=== PATIENT | female | born 1950 | race Caucasian/White ===

== ENCOUNTER → 2018-01-12 | Outpatient (CLI) | payer MEDICARE, OTHER ==
[~2018-01-12] MED LIST: AUG875 PO; CEF300 PO; IBU600 PO; LOR5 PO; METH4TAB57 PO; PER PO; PRO25 PO; VICODAN
--- NOTE | 2018-01-12 14:18 | RADIOLOGY IMAGING REPORT ---
FACILITY: [facility] PATIENT NAME: Cary Dunham : 1950 MR: [id number] V: [id number] EXAM DATE: ORDERING PHYSICIAN: MARISSA PATEL TECHNOLOGIST: Location: [facility] Patient: Cary Dunham : 1950 Visit/Account:[id number] Date of Sevice: 01/12/2018 DEXA Scan Clinical history: Post menopausal disorders. Comparison: DEXA scan from 11/11/2003. LUMBAR SPINE: The bone mineral density (BMD) measured from L1-L4 correlates with a Z-score of 1.6 and a T-score of -0.4 which is Normal as defined by the World Health Organization. The corresponding risk of fracture in the lumbar spine is Not increased compared with a young adult reference population. This value h as decrease by 18 % since the prior study. More than 5% change is considered significant. HIP: Bone mineral density (BMD) measured in the LEFT total hip region correlates with a Z-score 0.8 and a T-score of -0.7 which is normal as defined by the World Health Organization. The corresponding risk of fracture in the hip is 1-2 t imes increased compared to a young adult reference population. This value has decrease by 13.8 % sinc e the prior study. More than 5% change is considered significant. T score left femoral neck -1.2 Bone mineral density (BMD) measured in the Femoral Neck region measures 0.868 g/cm?. IMPRESSION: 1. Lumbar spine: Normal. There has been 18% decrease in the bone mineral density since the previous exam. 2. Left Total Hip: Normal. There has been 13.8% decrease in the bone mineral density since the prev ious exam. 3. Femoral Neck: Bone Mineral Density is 0.868 g/cm? The next DEXA scan of this patient should include the following sites: L1-L4 and the left hip. FRAX? WHO Fracture Risk Assessment Tool link: <http://www.shef.ac.uk/FRAX/tool.jsp?locationValue=9> PLEASE NOTE: 1) The World Health Organization defines low BMD as follows: T-score Normal > -1 Osteopenia < -1 and > -2.5 Osteoporosis < -2.5 without fractures Established osteoporosis < -2.5 with fractures 2) In general, you may wish to consider: Diagnosis Treatment Follow-up DEXA Normal BMD Prevention 2-3 years Osteopenia Prevention/therapy 1-2 years Osteoporosis Therapy Yearly 3) Fracture risk estimated from the T-score is more accurate for vertebral fractures (often spontane ous) than for hip fractures. Report Dictated By: Inge Mcwilliams MD at 01/12/2018 2:12 PM Report E-Signed By: Inge Mcwilliams MD at 01/12/2018 2:13 PM WSN:[email or web address]
--- NOTE | 2018-01-13 09:06 | RADIOLOGY IMAGING REPORT ---
FACILITY: [facility] PATIENT NAME: KARON NORMAN : [id number] MR: [id number] V: [id number] EXAM DATE: ORDERING PHYSICIAN: MARISSA PATEL TECHNOLOGIST: Marian Quinteros PROCEDURE:BILATERAL DIGITAL SCREENING MAMMOGRAM WITH CAD ASSISTED INTERPRETATION & 3D TOMOSYNTHESIS COMPARISON:Prior mammograms 12/21/16, 11/22/14, 09/01/15, 05/15/13, 06/07/11 INDICATIONS:SCREENING FINDINGS: Moderately heterogeneous fibroglandular tissue is seen throughout the breasts. The parenchymal pattern has remained stable allowing for difference in mammographic technique & patient positioning. There is no evidence of malignant appearing mass, malignant appearing calcifications or other secondary sign of malignancy in either breast. DIAGNOSTIC CATEGORY 1--NEGATIVE. RECOMMENDATIONS: ROUTINE MAMMOGRAM AND CLINICAL EVALUATION. IMPRESSION: BIRADS 1: Negative No significant abnormality is seen Dictated by: Inge Mcwilliams M.D. on 01/12/2018 at 17:01 Transcribed by: FIX on 01/13/2018 at 9:03 Approved by: Inge Mcwilliams M.D. on 01/13/2018 at 9:05 [facility]
== END ==
LOC: MAMO 00:35
PROVIDERS: ATTEND Physician Assistant
DX: Z13.820 Encounter for screening for osteoporosis (principal); Z12.31 Encounter for screening mammogram for malignant neoplasm of breast; N95.8 Other specified menopausal and perimenopausal disorders
CPT/HCPCS: 77063; 77067; 77080

== ENCOUNTER 2018-09-17 15:57 | Emergency (ER) | payer MEDICARE, OTHER ==
[2018-09-17] MEDS ORDERED: KETOROLAC 15 MG/ML VIAL IVP ONE ×2 (16:10→20:15)
--- NOTE | 2018-09-17 16:16 | ER Report ---
History and Physical Time Seen By MD: 15:52 Hx. of Stated Complaint: PT HAD A BACK SPASM THIS MORNING AROUND 1030. SHORTLY AFTER THREW UP. PT FELT BETTER, THEN WHEN DRIVING HAD ANOTHER SIMILAR EPISODE. HPI/ROS CHIEF COMPLAINT: l flank pain HISTORY OF PRESENT ILLNESS: Pt felt fine when she woke up. Pt at 1030am started wtih left flank pain that is sharp, dull and spasm like. The pain was so severe caused pt to vomit. Pain is constant but intensity varies. no hx of trauma. Pt did mow her leaves yesterday but did not feel she strained herself. Pt denies dysuria, denies hematuria. Denies radiation. no change in bm. No nausea until pain is severe. REVIEW OF SYSTEMS: Constitutional: No fever, no chills. Eyes: No discharge. ENT: No sore throat. Cardiovascular: No chest pain, no palpitations. Respiratory: No cough, no shortness of breath. Gastrointestinal: + abdominal pain, + vomiting. Genitourinary: No hematuria, + left flank pain Musculoskeletal: + back pain. Skin: No rashes. Neurological: No headache. Allergies: Coded Allergies: Amoxicillin (Verified Allergy, Mild, HIVES, 07/05/14) clavulanic acid (Verified Allergy, Mild, HIVES, 07/05/14) Home Meds Active Scripts Tamsulosin Hcl (FLOMAX) 0.4 Mg Cap.er.24h, 0.4 MG PO DAILY, #7 CAP Prov:ATUL CROUCH DO 09/17/18 Oxycodone Hcl/Acetaminophen (OXYCODONE-ACETAMINOPHEN 5-325) 1 Each Tablet, 1-2 EACH PO Q4-6H PRN for pain, #20 TAB Prov:ATUL CROUCH DO 09/17/18 Past Medical/Surgical History pmhx: gerd Pshx: neg Hx Smoking: No Smoking Status: Never Smoker Hx Alcohol Use: No Constitutional Vital Sign - Last 24 Hours 09/17/18 09/17/18 09/17/18 09/17/18 16:01 16:01 16:12 16:27 Temp 97.4 Pulse 60 65 Resp 16 B/P (MAP) 145/82 (103) 145/82 Pulse Ox 97 98 93 O2 Delivery Room Air 09/17/18 09/17/18 09/17/18 16:42 17:04 17:12 Pulse 68 74 B/P (MAP) 107/59 (75) Pulse Ox 96 94 Physical Exam General Appearance: The patient is alert, has no immediate need for airway protection and no signs of toxicity. Eyes: Pupils equal and round no pallor or injection, EOMI ENT: no pharyngeal erythema or exudates, Mucous membranes are moist Respiratory: There are no retractions, lungs are clear to auscultation. Cardiovascular: Regular rate and rhythm. pulses are equal and symmetrical Gastrointestinal: Abdomen is soft and non tender, no masses, bowel sounds normal, no guarding, no rigidity or rebound Neurological: Cranial nerves II-XII grossly intact, no sensory or motor loss Skin: Warm and dry, no rashes. Musculoskeletal: Neck is supple non tender, no vertebral tenderness, + left cva tenderness Extremities are nontender, non swollen and have full range of motion. DIFFERENTIAL DIAGNOSIS: After history and physical exam differential diagnosis was considered for pyelo, kidney stone, muscle strain Medical Decision Making Data Points Result Diagram: 09/17/18 1615 09/17/18 1615 Laboratory Hematology Test 09/17/18 16:15 09/17/18 17:03 Red Blood Count 4.70 M/uL (4.17-5.56) Mean Corpuscular Volume 91.5 fL (80.0-96.0) Mean Corpuscular Hemoglobin 30.8 pg (26.0-33.0) Mean Corpuscular Hemoglobin Concent 33.6 g/dL (32.0-36.0) Red Cell Distribution Width 13.8 % (11.5-14.5) Mean Platelet Volume 7.7 fL (7.2-11.1) Neutrophils (%) (Auto) 85.7 % (39.4-72.5) Lymphocytes (%) (Auto) 7.0 % (17.6-49.6) Monocytes (%) (Auto) 3.9 % (4.1-12.4) Eosinophils (%) (Auto) 0.9 % (0.4-6.7) Basophils (%) (Auto) 2.5 % (0.3-1.4) Nucleated RBC Relative Count (auto) 0.0 /100WBC Neutrophils # (Auto) 10.3 K/uL (2.0-7.4) Lymphocytes # (Auto) 0.8 K/uL (1.3-3.6) Monocytes # (Auto) 0.5 K/uL (0.3-1.0) Eosinophils # (Auto) 0.1 K/uL (0.0-0.5) Basophils # (Auto) 0.3 K/uL (0.0-0.1) Nucleated RBC Absolute Count (auto) 0.00 K/uL Sodium Level 138 mmol/L (137-145) Potassium Level 3.7 mmol/L (3.5-5.0) Chloride Level 105 mmol/L (98-107) Carbon Dioxide Level 24 mmol/L (22-31) Blood Urea Nitrogen 16 mg/dl (7-18) Creatinine 1.10 mg/dl (0.52-1.04) Glomerular Filtration Rate Calc 49.7 Random Glucose 105 mg/dl (75-110) Calcium Level 9.4 mg/dl (8.4-10.2) Total Bilirubin 0.5 mg/dl (0.2-1.3) Aspartate Amino Transf (AST/SGOT) 29 U/L (0-35) Alanine Aminotransferase (ALT/SGPT) 26 U/L (0-56) Alkaline Phosphatase 114 U/L (0-126) Total Protein 7.3 g/dl (6.3-8.2) Albumin 4.0 g/dl (3.5-5.0) Urine Color Robyn Urine Clarity Cloudy Urine pH 5.0 pH (4.8-9.5) Urine Specific [place] 1.020 Urine Protein 30 mg/dL (NEGATIVE) Urine Glucose (UA) Negative mg/dL (NEGATIVE) Urine Ketones Trace mg/dL (NEGATIVE) Urine Blood Large (NEGATIVE) Urine Nitrite Negative (NEGATIVE) Urine Bilirubin Negative (NEGATIVE) Urine Urobilinogen Negative mg/dL (0.2-1.9) Urine Leukocyte Esterase Negative (NEGATIVE) Urine RBC 1667 /HPF (0-2/HPF) Urine WBC None /HPF (0-5/HPF) Urine Squamous Epithelial Cells None /LPF (</=FEW) Urine Bacteria Negative /HPF (NONE-FEW) Urine Mucus Few /HPF (NONE-FEW) Chemistry Test 09/17/18 16:15 09/17/18 17:03 White Blood Count 12.0 k/uL (4.5-11.0) Red Blood Count 4.70 M/uL (4.17-5.56) Hemoglobin 14.5 g/dL (12.0-16.0) Hematocrit 43.1 % (34.0-47.0) Mean Corpuscular Volume 91.5 fL (80.0-96.0) Mean Corpuscular Hemoglobin 30.8 pg (26.0-33.0) Mean Corpuscular Hemoglobin Concent 33.6 g/dL (32.0-36.0) Red Cell Distribution Width 13.8 % (11.5-14.5) Platelet Count 252 K/uL (150-450) Mean Platelet Volume 7.7 fL (7.2-11.1) Neutrophils (%) (Auto) 85.7 % (39.4-72.5) Lymphocytes (%) (Auto) 7.0 % (17.6-49.6) Monocytes (%) (Auto) 3.9 % (4.1-12.4) Eosinophils (%) (Auto) 0.9 % (0.4-6.7) Basophils (%) (Auto) 2.5 % (0.3-1.4) Nucleated RBC Relative Count (auto) 0.0 /100WBC Neutrophils # (Auto) 10.3 K/uL (2.0-7.4) Lymphocytes # (Auto) 0.8 K/uL (1.3-3.6) Monocytes # (Auto) 0.5 K/uL (0.3-1.0) Eosinophils # (Auto) 0.1 K/uL (0.0-0.5) Basophils # (Auto) 0.3 K/uL (0.0-0.1) Nucleated RBC Absolute Count (auto) 0.00 K/uL Glomerular Filtration Rate Calc 49.7 Calcium Level 9.4 mg/dl (8.4-10.2) Total Bilirubin 0.5 mg/dl (0.2-1.3) Aspartate Amino Transf (AST/SGOT) 29 U/L (0-35) Alanine Aminotransferase (ALT/SGPT) 26 U/L (0-56) Alkaline Phosphatase 114 U/L (0-126) Total Protein 7.3 g/dl (6.3-8.2) Albumin 4.0 g/dl (3.5-5.0) Urine Color Robyn Urine Clarity Cloudy Urine pH 5.0 pH (4.8-9.5) Urine Specific [place] 1.020 Urine Protein 30 mg/dL (NEGATIVE) Urine Glucose (UA) Negative mg/dL (NEGATIVE) Urine Ketones Trace mg/dL (NEGATIVE) Urine Blood Large (NEGATIVE) Urine Nitrite Negative (NEGATIVE) Urine Bilirubin Negative (NEGATIVE) Urine Urobilinogen Negative mg/dL (0.2-1.9) Urine Leukocyte Esterase Negative (NEGATIVE) Urine RBC 1667 /HPF (0-2/HPF) Urine WBC None /HPF (0-5/HPF) Urine Squamous Epithelial Cells None /LPF (</=FEW) Urine Bacteria Negative /HPF (NONE-FEW) Urine Mucus Few /HPF (NONE-FEW) Urinalysis Test 09/17/18 17:03 Urine Color Robyn Urine Clarity Cloudy Urine pH 5.0 pH (4.8-9.5) Urine Specific [place] 1.020 Urine Protein 30 mg/dL (NEGATIVE) Urine Glucose (UA) Negative mg/dL (NEGATIVE) Urine Ketones Trace mg/dL (NEGATIVE) Urine Blood Large (NEGATIVE) Urine Nitrite Negative (NEGATIVE) Urine Bilirubin Negative (NEGATIVE) Urine Urobilinogen Negative mg/dL (0.2-1.9) Urine Leukocyte Esterase Negative (NEGATIVE) Urine RBC 1667 /HPF (0-2/HPF) Urine WBC None /HPF (0-5/HPF) Urine Squamous Epithelial Cells None /LPF (</=FEW) Urine Bacteria Negative /HPF (NONE-FEW) Urine Mucus Few /HPF (NONE-FEW) EKG/Imaging Imaging 2mm kidney stone ED Course/Re-evaluation Clinical Indication for ER IV: IV Access ED Course Pt on arrival was given toradol for pain. Since then pain has now increased and pt vomiting due to pain. I suspect stone. Fentanyl now ordered. 09/17/2018 5:46:25 pm Pt still with pain after toradol and fentanyl. will remedicate. Pts does have 2mm stone. Plan on sending home when she is more comfortable. When pain is severe pt starts vomiting. Unable to send home until better pain control. 09/17/2018 5:59:18 pm Signed out to dr. Mcneal pending pain control Decision to Disposition Date: Sep 17, 2018 Decision to Disposition Time: 17:48 Depart Departure Latest Vital Signs Vital Signs Date Time Temp Pulse Resp B/P (MAP) Pulse Ox O2 Delivery O2 Flow Rate FiO2 09/17/18 17:12 74 94 09/17/18 17:04 107/59 (75) 09/17/18 16:01 97.4 16 Room Air Impression: Primary Impression: Left nephrolithiasis Additional Impression: Hydronephrosis Condition: Improved Disposition: HOME OR SELF-CARE Referrals: MARISSA PATEL PA-C (PCP) ALENA BRADEN MD 5 Days New Scripts Ondansetron (ZOFRAN ODT) 4 Mg Tab.rapdis 4 MG PO Q6H PRN for NAUSEA/VOMITING, #10 TAB.TONI Prov: ATUL CROUCH DO 09/17/18 Tamsulosin Hcl (FLOMAX) 0.4 Mg Cap.er.24h 0.4 MG PO DAILY, #7 CAP Prov: ATUL CROUCH DO 09/17/18 Oxycodone Hcl/Acetaminophen (OXYCODONE-ACETAMINOPHEN 5-325) 1 Each Tablet 1-2 EACH PO Q4-6H PRN for pain, #20 TAB Prov: ATUL CROUCH DO 09/17/18 Patient Instructions: Kidney Stones (ED) Additional Instructions: You have a 2mm stone in your left upper ureter. Strain your urine looking for the stone. Percocet 1-2 every 4 hours as needed for pain. Flomax once a day to help with ureteral spasms. Zofran one every 6 hours as needed for nausea. Follow up with urology. I pain or symptoms worsens prior to seeing urology then please return. Problem Qualifiers Additional Impression: Hydronephrosis Hydronephrosis type: with ureteral calculous obstruction Qualified Codes: N13.2 - Hydronephrosis with renal and ureteral calculous obstruction ATUL CROUCH DO Sep 17, 2018 16:16
[2018-09-17 16:22] LABS: PLATELET COUNT, AUTOMATED 252 K/uL (150-450)
[2018-09-17] MEDS ORDERED: ONDANSETRON 4 MG/2 ML VIAL IVP ONE ×2 (16:35→20:15)
[2018-09-17] MEDS ORDERED: NS(*) 0.9% 1000 ML BAG 1,000 ML IV ONE (16:35)
[2018-09-17] MEDS ORDERED: fentaNYL CITR 100 MCG/2 ML AMP IVP ONE (17:00)
--- NOTE | 2018-09-17 17:35 | RADIOLOGY IMAGING REPORT ---
FACILITY: [facility] [place] PATIENT NAME: Cary Dunham : 1950 MR: [id number] V: [id number] EXAM DATE: ORDERING PHYSICIAN: ATUL CROUCH TECHNOLOGIST: Location: [facility] Patient: Cary Dunham : 1950 Visit/Account:[id number] Date of Sevice: 09/17/2018 COMPUTED TOMOGRAPHY OF THE Abdomen and Pelvis without CONTRAST INDICATION: Left flank pain. TECHNIQUE: Contiguous axial 3.[address] images were obtained through the abdomen and pelvis without co ntrast. Coronal and sagittal reformatted images were submitted. COMPARISON: Lumbar spine MR April 07, 2016. FINDINGS: Lung bases: The lung bases are clear. Liver and hepatic vasculature: Limited liver parenchymal evaluation without contrast. No focal lesi on is conspicuous. Gallbladder and bile ducts: Normal Spleen: Normal Pancreas: Normal Adrenals: Normal Kidneys, ureters and bladder: Mild left hydronephrosis. Punctate nonobstructive left renal calculus . 2 mm calculus in the proximal left ureter. No stone on the right. Normal-appearing bladder. Retroperitoneum and aorta: Normal caliber aorta. Mild scattered atherosclerosis. GI tract, mesentery and peritoneum: Normal appendix. No bowel obstruction. No free fluid or free ai r. There are numerous sigmoid and left colonic diverticula without findings of diverticulitis Uterus and adnexa: Normal appearing uterus. Bones and soft tissues: No acute osseous abnormality. IMPRESSION: Mild left hydronephrosis with a 2 mm calculus in the proximal left ureter. There is an additional no nobstructive left renal calculus. One of the following dose optimization techniques was utilized in the performance of this exam: Autom ated exposure control; adjustment of the mA and/or kV according to the patient's size; or use of an i terative reconstruction technique. Specific details can be referenced in the facility's radiology C T exam operational policy. Report Dictated By: Maida Harman MD at 09/17/2018 5:05 PM Report E-Signed By: Maida Harman MD at 09/17/2018 5:32 PM WSN:[email or web address]
[2018-09-17] MEDS ORDERED: TAMSULOSIN HCL 0.4 MG CAP PO ONE (17:45)
[2018-09-17] MEDS ORDERED: HYDROMORPHONE HCL 1 MG/ML SYRINGE IVP ONE ×2 (17:45→20:15)
[2018-09-17] MEDS ORDERED: TAMS0.4C25 PO (17:53)
[2018-09-17] MEDS ORDERED: OXYC-373 PO (17:53)
[2018-09-17] MEDS ORDERED: ONDA4TAB PO (18:00)
[2018-09-17] MEDS ORDERED: oxyCODONE/ACETAMIN 5/325MG TH 2 TAB/BOTTLE PO ONE ×2 (18:00→21:25)
[2018-09-17] MEDS ORDERED: ONDANSETRON 4 MG ODT TH SL ONE (18:00)
[2018-09-17] MEDS ORDERED: PROMETHAZINE 25 MG/ML 1 ML AMP IVP ONE (18:25)
[2018-09-17] MEDS ORDERED: NS(*) 0.9% 1000 ML BAG 1,000 ML IV PRN (20:20)
[2018-09-17] MEDS ORDERED: ACET/HYDROC 5/325MG TH ER ONLY 2 TAB/BOTTLE PO ONE (21:20)
[2018-09-17 21:22] VITALS: BP 108/50
== END 2018-09-17 21:36 | disposition home or self-care (01) ==
LOC: ER 16:05
DX: N13.2 Hydronephrosis with renal and ureteral calculous obstruction (principal)
CPT/HCPCS: 36415; 74176; 81001; 85025; 96361; 96374; 96375; 96376; 99284; A9270; J1170; J1885; J2405; J2550; J3010; J7030; Q0162; 82040; 82247; 82310; 82374; 82435; 82565; 82947; 84075; 84132; 84155; 84295; 84450; 84460; 84520; S0119

== ENCOUNTER → 2018-09-21 | Outpatient (CLI) | payer MEDICARE, OTHER ==
[~2018-09-21] MED LIST changes: +ONDA4TAB PO; +OXYC-373 PO; +TAMS0.4C25 PO
--- NOTE | 2018-09-21 09:43 | RADIOLOGY IMAGING REPORT ---
FACILITY: [facility] [place] PATIENT NAME: Cary Dunham : 1950 MR: [id number] V: [id number] EXAM DATE: ORDERING PHYSICIAN: ALENA BRADEN TECHNOLOGIST: Location: [facility] [place] Patient: Cary Dunham : 1950 Visit/Account:[id number] Date of Sevice: 09/21/2018 Single view of the abdomen Indication: Left nephrolithiasis Comparison: CT dated September 17, 2018. Findings: Bowel gas seen throughout the abdomen in a nonobstructive pattern. There are no pathologic calcifications identified. IMPRESSION: No visualized urolithiasis. Report Dictated By: Diaz Bolanos MD at 09/21/2018 9:37 AM Report E-Signed By: Diaz Bolanos MD at 09/21/2018 9:37 AM WSN:[email or web address]
== END ==
LOC: LAB 08:45
PROVIDERS: ATTEND Urology
DX: N20.0 Calculus of kidney (principal)
CPT/HCPCS: 74018; 81001

== ENCOUNTER → 2018-10-31 | Outpatient (CLI) | payer MEDICARE, OTHER ==
--- NOTE | 2018-10-31 08:55 | RADIOLOGY IMAGING REPORT ---
FACILITY: [facility] [place]IENT NAME: Cary Dunham : 1950 MR: [id number] V: [id number] EXAM DATE: ORDERING PHYSICIAN: ALENA BRADEN TECHNOLOGIST: Location: [facility] [place] Patient: Cary Dunham : 1950 Visit/Account:[id number] Date of Sevice: 10/31/2018 ABDOMEN/PELVIS W/O CONTRAST HISTORY: History of left-sided kidney stones TECHNIQUE: Axial images acquired through the abdomen/pelvis. Coronal and sagittal reformatting also performed. No IV contrast administered.Dose Lowering Technique One of the following dose optimization techniques was utilized in the performance of this exam: Autom ated exposure control; adjustment of the mA and/or kV according to the patient's size; or use of an i terative reconstruction technique. Specific details can be referenced in the facility's radiology C T exam operational policy. COMPARISON: September 17, 2018 FINDINGS: Visualized lung bases: Negative. Hepatobiliary: Negative. Spleen: Negative. Adrenals: Negative. Pancreas: A small punctate calcification in the tail the pancreas into in the pancreatic body remain s stable Kidneys ureters and bladder: There is a punctate 1 mm nonobstructing calculus lower pole of the right kidney. There is an additional 1 mm calcification upper pole of the left kidney. Previously noted proximal left ureteral calculus is no longer seen. There is no evidence of hydronephrosis or hydrour eter Genitalia: Negative. GI: There are numerous diverticula in the left-sided colon. There are minimal infiltrative changes seen in the pericolonic fat adjacent to the distal sigmoid colon. I history patient has no pain toda y there for these changes are more likely chronic Vessels/spaces/nodes: Negative. Bones/soft tissues: No aggressive appearing bone lesions are seen Additional findings: None pertinent. IMPRESSION: Nonobstructing calculi in both renal collecting systems the previously noted proximal left ureteral c alculus is no longer seen Additional chronic findings as described Report Dictated By: Inge Mcwilliams MD at 10/31/2018 8:32 AM Report E-Signed By: Inge Mcwilliams MD at 10/31/2018 8:50 AM WSN:[email or web address]
== END ==
LOC: CT 00:24
PROVIDERS: ATTEND Urology
DX: N20.0 Calculus of kidney (principal)
CPT/HCPCS: 74176

== ENCOUNTER → 2018-11-02 | Outpatient (CLI) | payer MEDICARE, OTHER | LOC: LAB 08:44 | PROVIDERS: ATTEND Urology | DX: N20.0 Calculus of kidney (principal) | CPT/HCPCS: 81001 ==